=== PATIENT | male | born 1995 | race African-American/Black ===

== ENCOUNTER 2017-03-14 09:57 | Outpatient (CLI) | payer BC ==
[2017-03-14 11:34] LABS: Bilirubin Negative (Negative); Blood, Urine Large (Negative); Glucose, Urine (Dipstick) Negative (Negative); Ketone, Urine Negative (Negative); Nitrite Negative (Negative); Protein, Urine (Dipstick) 30 mg/dL (Neg-Trace); Urobilinogen 0.2 mg/dL (0.2-1.0)
--- NOTE | 2017-03-14 12:59 | RAD ---
ABDOMEN ONE VIEW: HISTORY: A 21-year-old male with microscopic hematuria and right lower quadrant pain for 14 days. FINDINGS: There is some gas and fecal material in the colon. No evidence for bowel obstruction. There is a qu estionable 0.6 cm in diameter opacity overlying the region of the left kidney and splenic flexure of the colon, possibly a renal calculus. No evidence for a ureteral calculus. Left L5 transverse proce ss and left S1 pseudoarthrosis. IMPRESSION: Possible left renal calculus. POS: [facility]
[2017-03-14 13:38] LABS: Bacteria/HPF 1+ HPF (None Seen); WBC/HPF 0-3 HPF (0-3)
[2017-03-14 13:39] LABS: Squamous Epithelial None Seen HPF (0-3)
== END 2017-03-14 09:58 | disposition home or self-care (01) ==
LOC: SCSRAD 09:57
PROVIDERS: ATTEND Family Medicine
DX: R31.29 Other microscopic hematuria (principal)
CPT/HCPCS: 74000; 81001

== ENCOUNTER 2017-05-23 10:20 | Outpatient (CLI) | payer SELFPAY, OTHER ==
--- NOTE | 2017-05-23 11:59 | CT ---
CT ABDOMEN AND PELVIS WITHOUT CONTRAST: COMPARISON: None. HISTORY: Hematuria. TECHNIQUE: Multiple contiguous axial images were obtained in a CT of the abdomen and pelvis without contrast. C oronal reformats were performed. FINDINGS: There are calcifications in both kidneys. Calcifications on the right are punctate in size measuring approximately 1 mm. There is a larger calcification on the left measuring approximately 7 mm in gre atest dimension. No hydronephrosis is seen on either side and no calcifications are seen in the uret ers. The liver, gallbladder, adrenal glands, spleen, and pancreas are unremarkable, although evaluation is limited without IV contrast. No free air, free fluid, or stranding changes are seen in the abdomen or pelvis. The large and small bowel are unremarkable. The appendix is normal. No abdominal or pelvic lymphade nopathy are seen. The osseous structures, visualized inferior thorax, and abdominal wall soft tissues are unremarkable. IMPRESSION: Bilateral nephrolithiasis. POS: [facility]
== END 2017-05-23 10:21 | disposition home or self-care (01) ==
LOC: CT 10:20
PROVIDERS: ATTEND Urology
DX: R31.29 Other microscopic hematuria (principal); N20.0 Calculus of kidney
CPT/HCPCS: 74176

== ENCOUNTER 2017-07-13 10:08 | Outpatient (CLI) | payer BC ==
[2017-07-13 11:59] LABS: Anion Gap 9 mmol/L (10-20); BUN (Urea Nitrogen) 13 mg/dL (8.9-20.6); Calc. Creatinine Clearance 0 mL/min (70-130); Calcium 9.8 mg/dL (7.8-10.44); Carbon Dioxide 27 mmol/L (22-29); Chloride 106 mmol/L (98-107); Estimated GFR-MDRD Greater than 90; Glucose 81 mg/dL (70-105); Potassium 3.7 mmol/L (3.5-5.1); Sodium 138 mmol/L (136-145)
[2017-07-13 12:19] LABS: Hemoglobin 14.4 g/dL (14.0-18.0); Mean Corpuscular HGB CONC 35.4 g/dL (32.0-36.0); Mean Corpuscular Hemoglobin 31.1 pg (27.0-31.0); Mean Corpuscular Volume 87.8 fl (80.0-94.0); Mean Platelet Volume 8.4 fL (7.4-10.4); Platelet Count 277 thou/uL (130-400); Red Blood Cell (RBC) Count 4.63 mill/uL (4.70-6.10); White Blood Cell (WBC) Count 6.7 thou/uL (4.8-10.8)
[2017-07-13 14:18] LABS: Bilirubin Negative (Negative); Blood, Urine Trace (Negative); Clarity CLEAR (Clear); Glucose, Urine (Dipstick) Negative (Negative); Leukocyte Negative (Negative); Nitrite Negative (Negative); Protein, Urine (Dipstick) Negative (Neg-Trace); Specific Gravity, Urine 1.022 (1.002-1.036); Urobilinogen 0.2 mg/dL (0.2-1.0); pH, Urine 5.5 (5.0-9.0)
[2017-07-13 14:20] LABS: Bacteria/HPF None Seen HPF (None Seen); Hyaline Casts/LPF 0-3 HYALINE CAST LPF (0-3 Hyaline); RBC/HPF 0-3 HPF (0-3); Squamous Epithelial 0-3 HPF (0-3)
== END 2017-07-13 10:09 | disposition home or self-care (01) ==
LOC: LABBT 10:08
PROVIDERS: ATTEND Urology
DX: Z01.812 Encounter for preprocedural laboratory examination (principal); N20.0 Calculus of kidney; R31.29 Other microscopic hematuria
CPT/HCPCS: 80048; 81001; 85027

== ENCOUNTER 2017-07-19 06:31 | Day surgery (SDC) | payer BC ==
[2017-07-13 10:54] VITALS: BMI 18.4
[2017-07-19] MEDS ORDERED: Fentanyl 250 MCG/5 ML VIAL ONE (06:42)
[2017-07-19] MEDS ORDERED: Iothalamate Meglumine 60% 50 ML VIAL FS ONE (07:13)
--- NOTE | 2017-07-19 07:54 | RAD ---
KUB: Indication: Pre op evaluation. Comparison: 03-14-17, CT abdomen and pelvis dated 05-23-17. FINDINGS: The 7 mm calculus in the region of the superior pole of the left kidney is stable. No suspicious calc ulus is seen along the expected course of the renal collecting systems. There is a mild amount of ret ained stool within the colon. Bowel gas pattern is unobstructed. 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 IMPRESSION: Large calculus involving the superior pole of the left kidney is stable. No suspicious calculus is se en along the expected portion of the renal collecting systems. POS: [facility]
[2017-07-19] MEDS ORDERED: CEFAZOLIN 1 GM, Syringe 2.5 ML in Sterile Water 7.5 ML SLOW IVP SCH (08:00)
[2017-07-19] MEDS ORDERED: Furosemide 20 MG/2 ML VIAL ONE (09:31)
--- NOTE | 2017-07-19 10:24 | OP ---
DATE OF PROCEDURE: 07/19/2017 PREOPERATIVE DIAGNOSIS: Left renal stone. POSTOPERATIVE DIAGNOSIS: Left renal stone. PROCEDURE: Extracorporal shock wave lithotripsy. SURGEON: Dr. Suzi Villasenor ANESTHESIA: General with laryngeal mask airway. FINDINGS: Adequate fragmentation of left upper pole small partial staghorn. COMPLICATIONS: No complications. ESTIMATED BLOOD LOSS: No blood loss. DRAINS: No drains remaining. SPECIMENS: No specimens. INDICATIONS: The patient is a 22-year-old male who passed a small stone in February. He saw me afterwards and was still noted to have a 7-8 mm stone in the upper pole, it was actually splitting 2 calices and so we discussed definitive therapy for this and he elected for extracorporeal shock wave lithotripsy. The patient was brought into the room by Anesthesia, laid on the table in supine position. After receiving general anesthetic he was positioned supine and the lithotripter was able to identify the stone in multiple planes. A total of 2500 shocks at a maximum power of 4/6 at a maximum rate of 70 per minute were delivered. Anticipated needing to go up to a level of 5, but the fragmentation was adequate, so I kept it at the level of 4. Once 2500 shocks were reached the case concluded and he was awakened and transferred to PACU in stable condition. [facility]
== END 2017-07-19 11:15 | disposition home or self-care (01) ==
LOC: SDC 06:31
PROVIDERS: ATTEND Urology
PROC: 0TF4XZZ Fragmentation in Left Kidney Pelvis, External Approach (ICD-10-PCS; principal; 2017-07-19)
DX: N20.0 Calculus of kidney (principal)
CPT/HCPCS: 74018; A4216; J0131; J0690; J1940; J3010; Q9961

== ENCOUNTER 2017-08-16 09:28 | Outpatient (CLI) | payer BC ==
--- NOTE | 2017-08-16 10:15 | RAD ---
ABDOMEN ONE VIEW: History: Renal stones. Comparison: 07-19-17 FINDINGS: A large amount of stool is present throughout the colon and rectum, obscuring the renal outline. Oval calcification projecting over the superior pole of the left kidney was well demonstrated on the prev ious study from 07-09-17, but is completely obscured by bowel content on today's exam. No calculi are reliably demonstrated along the course of either urinary tract on today's study. IMPRESSION: Bowel content obscures urinary system. Calcifications not well seen on the current study. POS: [facility]
== END 2017-08-16 09:29 | disposition home or self-care (01) ==
LOC: RAD 09:28
PROVIDERS: ATTEND Urology
DX: N20.0 Calculus of kidney (principal); N28.89 Other specified disorders of kidney and ureter
CPT/HCPCS: 74018

== ENCOUNTER 2018-02-14 09:12 | Outpatient (CLI) | payer BC ==
--- NOTE | 2018-02-14 12:53 | RAD ---
KUB: INDICATIONS: Follow up renal stone. COMPARISON: 08/16/2017 FINDINGS: No suspicious calcification is present. The bowel gas pattern is unobstructed. No acute osseous abn ormality is evident. IMPRESSION: No suspicious renal stone identified. POS: [facility]
== END 2018-02-14 09:13 | disposition home or self-care (01) ==
LOC: RAD 09:12
PROVIDERS: ATTEND Urology
DX: N20.0 Calculus of kidney (principal)
CPT/HCPCS: 74018